=== PATIENT | male | born 1950 | race Caucasian/White ===

== ENCOUNTER 2018-07-14 10:26 | Emergency (ER) | payer OTHER ==
[2018-07-14 10:34] VITALS: BP 167/61
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
== END 2018-07-14 12:04 | disposition home or self-care (01) ==
LOC: ER 10:26
DX: S22.42XA Multiple fractures of ribs, left side, initial encounter for closed fracture (principal); R07.81 Pleurodynia; V28.4XXA Motorcycle driver injured in noncollision transport accident in traffic accident, initial encounter; I10 Essential (primary) hypertension; Z72.0 Tobacco use
CPT/HCPCS: 99283